=== PATIENT | female | born 1970 | race Two or more races ===

== ENCOUNTER → 2020-09-16 | Outpatient (CLI) | payer OTHER | END | disposition home or self-care (01) | LOC: LAB 17:23 | PROVIDERS: ATTEND Nurse Practitioner Family | DX: U07.1 COVID-19 (principal) | CPT/HCPCS: C9803; U0003 ==

== ENCOUNTER 2021-02-07 08:36 | Inpatient (IN) | payer BC, OTHER ==
[~2021-02-07] VITALS: Ht 149.9 cm; Wt 46.7 kg
[2021-02-07 09:09] LABS: Urine Bacteria NONE SEEN /hpf (None Seen); Urine Blood 1+ /uL (Negative); Urine Mucus FEW (None Seen); Urine Specific Gravity 1.024 (1.001-1.035); Urine WBC 1 /hpf (0 - 5)
[2021-02-07 09:28] LABS: Eosinophils # (auto) 0.2 10 ^3/uL (0-0.8); Neutrophils # (auto) 2.9 10 ^3/uL (1.6-8.6); Nucleated Red Blood Cells % 0.1 %; Red Blood Cells 4.68 10^6/uL (4.0-5.20); White Blood Cell 4.7 10^3/uL (4.4-10.8)
[2021-02-07 09:30] LABS: Basophils # (auto) 0.1 10 ^3/uL (0-0.2); Basophils % (auto) 1.2 % (0.0-2.0); Eosinophils % (auto) 4.8 % (0.0-7.0); Hematocrit 32.1 % (36.0-46.0); Hemoglobin 10.3 g/dL (12.2-16.2); Lymphocytes # (auto) 1.1 10 ^3/uL (0.4-5.4); Lymphocytes % (auto) 24.1 % (10.0-50.0); Mean Corpuscular Hemoglobin 22.1 pg (28.0-32.0); Mean Corpuscular Hgb Conc. 32.2 g/dL (32.0-36.0); Mean Corpuscular Volume 68.6 fL (80.0-100.0); Monocytes # (auto) 0.4 10 ^3/uL (0-1.3); Monocytes % (auto) 7.8 % (0.0-12.0); Neutrophils % (auto) 62.1 % (37.0-80.0)
[2021-02-07 09:32] LABS: Red Cell Distribution Width 21.2 % (11.8-14.3)
[2021-02-07 09:40] LABS: Albumin 4.1 g/dL (3.4-5.0); Potassium 3.7 mmol/L (3.5-5.1)
[2021-02-07 09:44] LABS: Bilirubin, Total 0.4 mg/dL (0.2-1.0)
[2021-02-07] MEDS ORDERED: IOHEXOL 300 MG/ML 100ML BOTTLE IJ ONE (10:18)
[2021-02-07 16:36] VITALS: BP 117/72
[2021-02-07] MEDS: FERROUS SULFATE 325mg EC TAB PO SCH (17:26)
[2021-02-07] MEDS: ACETAMINOPHEN 500 MG TAB PO PRN (17:38)
[2021-02-07] MEDS: ONDANSETRON HCL 4 MG/2 ML VIAL IV PRN (17:41)
[2021-02-07] MEDS ORDERED: GOLYTELY 4L KIT PO ONE (18:00)
[2021-02-07 22:00] VITALS: BP 94/58
[2021-02-08 05:00] VITALS: BP 89/56
[2021-02-08] MEDS ORDERED: MAGNESIUM CITRATE SOLUTION 300 ML BTL PO ONE (06:00)
[2021-02-08] MEDS ORDERED: GOLYTELY 4L KIT PO ONE (06:00)
[2021-02-08 06:31] LABS: INR 1.03 (0.9-1.15); Partial Thromboplastin Time 26.6 sec (23.0-31.2)
[2021-02-08] MEDS: FERROUS SULFATE 325mg EC TAB PO SCH ×3 (08:00→17:59)
[2021-02-08] MEDS: ACETAMINOPHEN 500 MG TAB PO PRN ×2 (08:34→18:00)
[2021-02-08 09:00] VITALS: BP 97/59
[2021-02-08] MEDS ORDERED: D5W/SOD CHL 0.45%/KCL 20MEQ 1,000 ML IV SCH (09:30)
[2021-02-08 09:49] LABS: % Iron Saturation 6.1 % (15-50)
[2021-02-08] MEDS ORDERED: PANTOPRAZOLE 40 MG TAB PO SCH (10:00)
[2021-02-08 13:00] VITALS: BP 95/42
[2021-02-08] MEDS ORDERED: fentaNYL CITRATE 100 MCG/2 ML VL ONE (14:57)
[2021-02-08] MEDS ORDERED: MIDAZOLAM HCL 2MG/2ML 2ml VIAL (1mg/ml) ONE (14:57)
[2021-02-08] MEDS ORDERED: LIDOCAINE 2% (LOCAL ANESTH.) PF 5ml SDV ONE (14:58)
[2021-02-08] MEDS ORDERED: PROPOFOL 10 MG/ML 20 ML IV ONE (14:58)
[2021-02-08] MEDS ORDERED: ONDANSETRON HCL 4 MG/2 ML VIAL IV PRN (16:00)
[2021-02-08 16:51] VITALS: BP 87/52
[2021-02-08] MEDS ORDERED: SUCRALFATE 1 GM/10 ML ORAL SUSP PO SCH (17:00)
[2021-02-08] MEDS: ONDANSETRON HCL 4 MG/2 ML VIAL IV PRN (17:55)
[2021-02-08 18:44] VITALS: BP 95/42
== END 2021-02-08 19:50 | disposition home or self-care (01) | DRG 392 ==
LOC: ER 08:36 → OVERFLOW 11:14 → CENTRAL 14:42
PROVIDERS: ADMIT Nurse Practitioner Acute Care; ATTEND Internal Medicine
PROC: 0DB68ZX Excision of Stomach, Via Natural or Artificial Opening Endoscopic, Diagnostic (ICD-10-PCS; 2021-02-08)
PROC: 0DJD8ZZ Inspection of Lower Intestinal Tract, Via Natural or Artificial Opening Endoscopic (ICD-10-PCS; principal; 2021-02-08 15:05)
PROC: 0DB98ZX Excision of Duodenum, Via Natural or Artificial Opening Endoscopic, Diagnostic (ICD-10-PCS; 2021-02-08 15:05)
DX: K29.70 Gastritis, unspecified, without bleeding (principal); D84.9 Immunodeficiency, unspecified; Q43.8 Other specified congenital malformations of intestine; D25.9 Leiomyoma of uterus, unspecified; D50.9 Iron deficiency anemia, unspecified; K64.8 Other hemorrhoids; N28.1 Cyst of kidney, acquired; Z20.822 Contact with and (suspected) exposure to COVID-19; Z79.899 Other long term (current) drug therapy; Z88.2 Allergy status to sulfonamides
CPT/HCPCS: 36415; 43239; 45378; 71045; 74177; 76705; 78226; 80053; 81001; 81025; 82728; 83540; 83550; 83605; 83690; 85025; 85610; 85730; 86850; 86900; 86901; 87040; 87426; 96374; G0378; J2001; J2250; J2405; J2704